=== PATIENT | female | born 1990 | race Two or more races ===

== ENCOUNTER 2018-08-28 12:51 | Emergency (ER) | payer OTHER ==
[~2018-08-28] VITALS: Ht 167.6 cm; Wt 59.0 kg
== END 2018-08-28 17:41 | disposition home or self-care (01) ==
LOC: ER 12:51
DX: S01.01XA Laceration without foreign body of scalp, initial encounter (principal); W18.09XA Striking against other object with subsequent fall, initial encounter; Y93.89 Activity, other specified; Y92.098 Other place in other non-institutional residence as the place of occurrence of the external cause; Y99.8 Other external cause status

== ENCOUNTER → 2018-09-06 | Emergency (ER) | payer OTHER ==
[~2018-09-06] VITALS: Ht 162.6 cm; Wt 59.0 kg
== END | disposition home or self-care (01) ==
LOC: ER 13:21
DX: Z48.02 Encounter for removal of sutures (principal)

== ENCOUNTER 2019-08-07 14:42 | Emergency (ER) | payer OTHER ==
[~2019-08-07] VITALS: Ht 162.6 cm; Wt 61.7 kg
[2019-08-07] MEDS ORDERED: VISINE-A EYE AL15 ML (15:34)
== END 2019-08-07 18:34 | disposition home or self-care (01) ==
LOC: ER 14:42
DX: H57.89 Other specified disorders of eye and adnexa (principal)

== ENCOUNTER 2025-08-20 23:43 | Emergency (ER) | payer OTHER ==
[~2025-08-20] VITALS: Ht 160 cm; Wt 62.1 kg
[~2025-08-20 23:43] MED LIST: LEVSIN/SL0.125 MG SL; PROTONIX40 MG PO; VISINE-A EYE AL15 ML
[2025-08-21] MEDS ORDERED: FAMOtidine 10 MG/ML (4ML VIAL) IV PUSH ONE (00:30)
[2025-08-21] MEDS ORDERED: KETOROLAC TROMETHAMINE 30 MG VIAL IU ONE (00:30)
[2025-08-21] MEDS ORDERED: 0.9 % SODIUM CHLORIDE 1,000 ML IV SCH (00:30)
[2025-08-21] MEDS ORDERED: ONDANSETRON HCL 2 MG/ML VIAL IV ONE (00:30)
[2025-08-21] MEDS ORDERED: KETOROLAC TROMETHAMINE 30 MG VIAL ONE (00:34)
[2025-08-21] MEDS ORDERED: FAMOTIDINE/PF 20 MG/2 ML VIAL ONE (00:35)
[2025-08-21] MEDS ORDERED: ONDANSETRON HCL 2 MG/ML VIAL ONE (00:35)
[2025-08-21 01:04] LABS: BASO % 0.6 % (0.1-1.2); EOS # 0.21 (0.04-0.54); EOS % 2.4 % (0.7-7.0); LYMPH # 1.70 (1.18-3.74); LYMPH % 19.7 % (19.3-53.1); MEAN PLATELET VOLUME 10.40 fl (9.4-12.4); MONO # 0.76 (0.24-0.82); MONO % 8.8 % (4.7-12.5); NEUT # 5.87 (1.56-6.13); NEUT % 68.3 % (34.0-71.1); RED CELL DISTRIBUTION WIDTH 13.1 % (11.6-14.4)
[2025-08-21 02:07] LABS: ALT/SGPT 29 U/L (12-78); AST/SGOT 31 U/L (15-37); BILIRUBIN TOTAL 0.24 mg/dL (0.3-1.2); BILIRUBIN,CONJUGATED < 0.10 mg/dL (0.0-0.2); BUN CREA RATIO 15 (7.0-25.0); CREATININE SERUM 0.61 mg/dL (0.55-1.02); GFR 113.66; GLOBULINA 3.5 G/DL (2.4-3.5); GLUCOSE FASTING 98 mg/dL (65-100); OSMOLALITY SERUM 278 MOSM/KG (275-295)
[2025-08-21 02:14] LABS: HCG QUANTITATIVE < 1 mUI/mL (1-3)
[2025-08-21] MEDS ORDERED: MORPHINE SULFATE 4 MG/ML CARTRIDGE IV PRN (04:45)
[2025-08-21] MEDS ORDERED: PIPERACILLIN/TAZOBACTAM SODIUM 3.375 GM in DEXTROSE 5 % IN WATER 100 ML IV ONE (04:45)
[2025-08-21] MEDS ORDERED: PIPERACILLIN/TAZOBACTAM SODIUM 3.375 GM VIAL IV ONE (05:42)
[2025-08-21] MEDS ORDERED: LEVSIN/SL0.125 MG SL (10:07)
== END 2025-08-21 10:29 | disposition home or self-care (01) ==
LOC: ER
PROVIDERS: General Practice
DX: K29.70 Gastritis, unspecified, without bleeding (principal); Z91.018 Allergy to other foods; K80.18 Calculus of gallbladder with other cholecystitis without obstruction